=== PATIENT | female | born 1955 | race Two or more races ===

== ENCOUNTER 2019-12-05 17:02 | Emergency (ER) | payer OTHER ==
[~2019-12-05] VITALS: Ht 162.6 cm; Wt 53.1 kg
[2019-12-05] MEDS ORDERED: SYNTHROID75 MCG (17:16)
[2019-12-05] MEDS ORDERED: FOLIC ACID20 MG (17:16)
[2019-12-05] MEDS ORDERED: GRALISE600 MG (17:16)
[2019-12-05] MEDS ORDERED: METFORMIN HCL500 M3 (17:16)
[2019-12-05] MEDS ORDERED: CARDIZEM30 MG (17:17)
== END 2019-12-05 21:44 | disposition home or self-care (01) ==
LOC: ER 17:02
DX: I16.0 Hypertensive urgency (principal); I10 Essential (primary) hypertension; R19.7 Diarrhea, unspecified

== ENCOUNTER 2019-12-30 15:46 | Emergency (ER) | payer OTHER ==
[~2019-12-30] VITALS: Ht 157.5 cm; Wt 72.6 kg
[~2019-12-30 15:46] MED LIST: CARDIZEM30 MG; FOLIC ACID20 MG; GRALISE600 MG; METFORMIN HCL500 M3; SYNTHROID75 MCG
[2019-12-30] MEDS ORDERED: CILOSTAZOL50 MG PO (16:03)
[2019-12-30] MEDS ORDERED: HYDRALAZINE HCL50 MG (16:04)
[2019-12-30] MEDS ORDERED: HUMULIN 70100 UNIT/2 (16:04)
== END 2019-12-30 21:48 | disposition home or self-care (01) ==
LOC: ER 15:46
DX: R07.89 Other chest pain (principal)